=== PATIENT | male | born 1965 | race Caucasian/White ===

== ENCOUNTER 2019-07-31 14:54 | Emergency (ER) | payer BC ==
[2019-07-31] MEDS ORDERED: Aspirin 81 mg CHEW TAB* 81 MG TAB.CHEW PO ONE (15:03)
[2019-07-31] MEDS ORDERED: Albuterol/Ipratropium NEB.SOL* Albuterol 2.5 MG/Ipratropium 0.5 MG 3 ML INH ONE (15:12)
--- NOTE | 2019-07-31 15:12 | UC ---
Cardiac HPI - HPI Summary HPI Summary: Started with middle back pain and left upper chest pain, sharp, worse with coughing and taking a deep breath. No Nausea or diaphoresis. Does get "bronchitis" a couple of times a year. No family history of CAD. Non-smoker. Normal cholesterol. - History of Current Complaint Chief Complaint: UCChestPain Stated Complaint: CHEST PAIN/SOB Time Seen by Provider: 07/31/19 15:03 Hx Obtained From: Patient Onset/Duration: Sudden Onset - started last night, Lasting Days - 2, Worse Since - exposure to the cold air at the grocery store. Timing: Constant Initial Severity: Moderate Current Severity: Moderate Pain Intensity: 6 Chest Pain Location: Left Anterior - upper chest, and left upper/ middle back. Character: Sharp/Stabbing Aggravating Factor(s): Deep Breaths - and coughing. Alleviating Factor(s): Nothing Associated Signs & Symptoms: Positive: Chest Pain, SOB, Cough. Negative: Anxiety, Diaphoresis, Nausea/Vomiting - Risk Factors Pulmonary Embolism Risk Factors: Negative Cardiac Risk Factors: Negative - Allergy/Home Medications Allergies/Adverse Reactions: Allergies Allergy/AdvReac Type Severity Reaction Status Date / Time Penicillins Allergy Unknown Verified 07/31/19 15:00 Reaction Details PMH/Surg Hx/FS Hx/Imm Hx Previously Healthy: Yes - Surgical History Surgical History: Yes Surgery Procedure, Year, and Place: APPY - Family History Known Family History: Negative: Cardiac Disease, Hypertension, Diabetes - Social History Occupation: Employed Full-time Lives: With Family Alcohol Use: Occasionally Substance Use Type: None Smoking Status (MU): Never Smoked Tobacco Review of Systems All Other Systems Reviewed And Are Negative: Yes Respiratory: Positive: Shortness Of Breath, Cough Cardiovascular: Positive: Chest Pain Is Patient Immunocompromised?: No Physical Exam Triage Information Reviewed: Yes Appearance: Well-Appearing, Pain Distress - mild, pain worse with coughing. Vital Signs: Initial Vital Signs Temp 96.5 F 07/31/19 14:56 Pulse 107 07/31/19 14:56 Resp 24 07/31/19 14:56 BP 152/86 07/31/19 14:56 Pulse Ox 98 07/31/19 14:56 Vital Signs Reviewed: Yes Eyes: Positive: Conjunctiva Clear ENT: Positive: Pharynx normal, TMs normal Neck exam: Normal Respiratory: Positive: Wheezing - expiratory wheezing with coughing. Negative: Chest non-tender - tender left pectoralis minor which reproduces the chest pain. Cardiovascular Exam: Normal Musculoskeletal Exam: Normal Musculoskeletal: Positive: Other: - Tender in the left rhomboid, reproducing the left upper back pain. Neurological Exam: Normal Psychological Exam: Normal Skin Exam: Normal Diagnostics - Radiology No standard instances Radiology Interpretation Completed By: Radiologist Summary of Radiographic Findings: patchy airspace densities in the lingula - Differential Diagnoses - Chest Pain Differential Diagnosis/HQI/PQRI: Acute TX, Angina, Aortic Aneurysm, Chest Wall, Lower Respiratory Infection, Pulmonary Embolism - Clinical Impression Provider Diagnosis: Bronchopneumonia, Acute bronchospasm, Muscular chest pain Discharge ED - Sign-Out/Discharge Documenting (check all that apply): Patient Departure All imaging exams completed and their final reports reviewed: Yes - Discharge Plan Condition: Stable Disposition: HOME Prescriptions: Albuterol HFA INHALER* [Ventolin HFA Inhaler*] 2 puff INH Q4H PRN #1 mdi PRN Reason: Wheezing DOXYcycline CAP(*) [DOXYcycline 100MG CAP(*)] 100 mg PO BID #20 cap predniSONE TAB* [Deltasone 20 MG TAB*] 60 mg PO DAILY #18 tab Patient Education Materials: Community Acquired Pneumonia (ED), Bronchospasm ( ED), Prednisone (By mouth), How to Use a Metered-Dose Inhaler (ED) Referrals: Raciel Copeland MD [Primary Care Provider] - 2 Weeks (Recheck breathing. Need another chest xray to show clearing.) - Billing Disposition and Condition Condition: STABLE Disposition: Home
[2019-07-31] MEDS ORDERED: predniSONE TAB* 20 MG PO ONE (15:23)
[2019-07-31 16:05] VITALS: BP 136/75
== END 2019-07-31 16:05 | disposition home or self-care (01) ==
LOC: UCCORT 14:54
DX: J18.0 Bronchopneumonia, unspecified organism (principal); J98.01 Acute bronchospasm; R07.89 Other chest pain; Z88.0 Allergy status to penicillin
CPT/HCPCS: 71046; 93005; 99213; A9270-GY; G0463; J7512